=== PATIENT | female | born 1980 | race Native Hawaiian/Other Pacific Islander ===

== ENCOUNTER 2016-05-14 21:30 | Observation (INO) | payer OTHER ==
[~2016-05-14] VITALS: Ht 177.8 cm; Wt 86.2 kg
[2016-05-14] MEDS ORDERED: TERBUTALINE 1 MG/ML VIAL SUBQ SCH (22:40)
[2016-05-14] MEDS ORDERED: BETAMETH ACET/BETAMETH NA PH 30 MG/5 ML VIAL IM ONE ×2 (22:40→23:06)
[2016-05-14] MEDS ORDERED: LABE200T9 PO (23:00)
[2016-05-14] MEDS ORDERED: PREN-380 PO (23:00)
[2016-05-14] MEDS ORDERED: GLYB2.5T9 PO (23:00)
[2016-05-14] MEDS ORDERED: TERBUTALINE 1 MG/ML VIAL SUBQ ONE (23:07)
[2016-05-14] MEDS: LACTATED RINGERS 1,000 ML IV SCH (23:27)
[2016-05-14 23:34] VITALS: BP 124/78
[2016-05-14] MEDS ORDERED: INFLUENZA VIRUS VACCINE QUAD 0.5 ML SYR IMVAC SCH (23:40)
[2016-05-15] MEDS ORDERED: TERBUTALINE 2.5 MG TAB PO SCH
[2016-05-15 00:05] LABS: BASOPHILS # (AUTO) 0.1 K/uL (0.00-0.22)
[2016-05-15 00:11] LABS: BASOPHILS % (AUTO) 0.9 % (0.0-2.0); EOSINOPHILS # (AUTO) 0.3 K/uL (0-0.4); EOSINOPHILS % (AUTO) 2.6 % (0.0-4.0); HEMATOCRIT 34.2 % (36-48); HEMOGLOBIN 10.7 g/dL (12.0-16.0); LYMPHOCYTES # (AUTO) 2.6 K/uL (2.5-16.5); LYMPHOCYTES % (AUTO) 23.1 % (20.5-51.1); MEAN CORPUSCULAR HEMOGLOBIN 24 pg (27-31); MEAN CORPUSCULAR HGB CONC 31 g/dL (33-37); MEAN CORPUSCULAR VOLUME 77 fL (80-94); MONOCYTES # (AUTO) 0.9 K/uL (0.8-1.0); MONOCYTES % (AUTO) 7.8 % (1.7-9.3); NEUTROPHILS # (AUTO) 7.4 K/uL (1.8-7.7); NEUTROPHILS % (AUTO) 65.6 % (42.2-75.2); PLATELET COUNT (AUTO) 149 K/uL (140-450); RED BLOOD CELL COUNT(AUTO) 4.45 MIL/uL (4.20-5.40); RED CELL DISTRIBUTION WIDTH 15.3 % (11.6-13.7)
[2016-05-15 00:12] LABS: APPEARANCE,URINE CLEAR (CLEAR); BILIRUBIN,URINE NEGATIVE (NEGATIVE); BLOOD, URINE NEGATIVE (NEGATIVE); COLOR,URINE YELLOW (YELLOW); LEUKOCYTE ESTERASE ,URINE NEGATIVE (NEGATIVE); NITRITE, URINE NEGATIVE (NEGATIVE); PROTEIN,URINE NEGATIVE (NEGATIVE); UGLUCOSE 3+ (NEGATIVE); UROBILINOGEN,URINE 0.2 EU/dL (0.2 - 1)
[2016-05-15 00:20] LABS: WHITE BLOOD COUNT (AUTO) 11.3 K/uL (4.8-10.8)
[2016-05-15 00:21] LABS: ALBUMIN 2.7 g/dL (3.4-5.0); ANION GAP 10.7 (8-16); CALCIUM 8.6 mg/dL (8.5-10.1); CARBON DIOXIDE 25.6 mmol/L (21-32); CREATININE 0.6 mg/dL (0.6-1.3); POTASSIUM 4.3 mmol/L (3.5-5.1); TOTAL BILIRUBIN 0.3 mg/dL (0.0-1.0); TOTAL PROTEIN, SERUM 6.3 g/dL (6.4-8.2)
[2016-05-15 00:27] LABS: BACTERIA,URINE 0-2 (RARE) /HPF (None Seen); RBC,URINE 0-5 (RARE) /HPF (0-5); SQUAMOUS EPITHELIAL CELL,UR 0-3 (FEW) /LPF (0-3 (FEW)); WBC,URINE 0-5 (RARE) /HPF (0-5)
[2016-05-15 00:34] LABS: INR 1.2 (0.8-1.2); PARTIAL THROMBOPLASTIN TIME 26.7 secs (22-35.6); PROTHROMBIN TIME 11.1 secs (10.8-13.4)
[2016-05-15] MEDS ORDERED: TERBUTALINE 2.5 MG TAB ONE ×5 (04:05→19:58)
[2016-05-15] MEDS: LACTATED RINGERS 1,000 ML IV SCH (05:51)
--- NOTE | 2016-05-15 07:13 | NUR ---
PATIENT HAS BEEN SCREENED AND CATEGORIZED MODERATE NUTRITION RISK. PATIENT WILL BE SEEN WITHIN 3-5 DAYS OF ADMISSION. 05/17/16-05/19/16 SYDNEE FRAIRE MS, RDN
[2016-05-15] MEDS ORDERED: LABETALOL 100 MG TAB PO SCH (09:00)
[2016-05-15] MEDS ORDERED: LABETALOL 100 MG TAB ONE (11:59)
[2016-05-15] MEDS ORDERED: BETAMETH ACET/BETAMETH NA PH 30 MG/5 ML VIAL IM ONE (20:39)
== END 2016-05-15 21:15 | disposition home or self-care (01) ==
LOC: MFCC 21:30
PROVIDERS: ADMIT Obstetrics & Gynecology; ATTEND Obstetrics & Gynecology
DX: O26.893 Other specified pregnancy related conditions, third trimester (principal); R10.30 Lower abdominal pain, unspecified; Z3A.32 32 weeks gestation of pregnancy
CPT/HCPCS: 36415; 76805; 80053; 81001; 82731; 82948; 85025; 85379; 85384; 85610; 85730; 96360; 96361; 96372; G0378; J0702; J3105; J7120; Q0092

== ENCOUNTER 2016-06-21 15:48 | Emergency (ER) | payer OTHER ==
[~2016-06-21] VITALS: Ht 177.8 cm; Wt 92.2 kg
[~2016-06-21 15:48] MED LIST: GLYBURIDE2.5 MG PO; LABETALOL HCL200 M1 PO; PRENATAL LOW IR1 TA1 PO
[2016-06-21 15:52] VITALS: BP 137/79
--- NOTE | 2016-06-21 16:20 | NUR ---
PT CAME IN WITH CHEST PAIN 7/10 CONSTANT RADIATING TO LEFT ARM WITH SHORTNESS OF BREATH STARTED 1 PM ,O2 SAT OF 99%.PT IS 40 WEEKS .NO VAGINAL BLEEDING.WITH ON AND OFF CRAMPING.WITH NAUSEA ,NO VOMITING NO FEVER ,NO DIARRHEA.PT FELT MOVEMENT.PT WITH DM AND HTN;AAOX4;NO ACUTE DISTRESS NOTED AT THIS TIME;HOB ELEVATED;NEEDS ATTENDED;SAFETY MEASURES DONE;POSITIONED FOR COMFORT.
[2016-06-21] MEDS ORDERED: ACETAMINOPHEN EXTRA STRENGTH 500 MG TAB PO ONE (16:50)
[2016-06-21] MEDS ORDERED: ONDANSETRON 4 MG ODT PO ONE (16:50)
--- NOTE | 2016-06-21 17:31 | NUR ---
PT LYING ON BED;NO ACUTE DISTRESS NOTED AT THIS TIME;PT STATES SHE DON'T HAVE CHEST PAIN AT THIS TIME PAIN SCALE OF 0/10;WILL CONTINUE TO MONITOR PT.
--- NOTE | 2016-06-21 18:17 | NUR ---
US AT BEDSIDE.
--- NOTE | 2016-06-21 19:50 | NUR ---
ASSUMED CARE. RECEIVED ALERT, ORIENTED. NOT IN ACUTE DISTRESS. DENIES ANY PAIN OR DISCOMFORT AT THIS TIME. PT. IS FOR PLANNED TRANSFER TO [facility]. VS STABLE, WILL CONTINUE TO MONITOR.
--- NOTE | 2016-06-21 21:25 | NUR ---
PT.ACCEPTED AT [facility]. ACCEPTING MD IS DR. DOMINGUEZ. OB-HEALTH SERVICES DIRECTOR IS . BELLA GIVEN TO PARTITION NOTCHERBRITTNEY LEBLANC. PT. REMAINS STABLE AND PAIN FREE.
--- NOTE | 2016-06-21 21:30 | NUR ---
PT.LEFT VIA [place] [facility].
[2016-06-21 21:40] VITALS: BP 142/99
== END 2016-06-21 21:30 | disposition short-term general hospital (02) ==
LOC: MED 15:48
DX: O26.892 Other specified pregnancy related conditions, second trimester (principal); R07.89 Other chest pain; Z3A.38 38 weeks gestation of pregnancy
CPT/HCPCS: 36415; 80053; 82948; 83880; 84484; 85025; 85379; 85610; 85730; 93005; 93970; 99291; 99292; Q0092; S0119

== ENCOUNTER 2016-06-25 07:15 | Inpatient (IN) | payer OTHER ==
[~2016-06-25] VITALS: Ht 177.8 cm; Wt 92.5 kg
[2016-06-25] MEDS ORDERED: LACTATED RINGERS 1,000 ML IV SCH (08:04)
[2016-06-25] MEDS ORDERED: CITRIC ACID/SODIUM CITRATE 30 ML UDC PO SCH (08:05)
[2016-06-25] MEDS ORDERED: OXYTOCIN 20 UNITS/LR PREMIX 1,000 ML IV SCH (08:15)
[2016-06-25] MEDS ORDERED: LABETALOL HCL100 MG PO (08:53)
[2016-06-25] MEDS ORDERED: PRENATAL LOW IR1 TA1 PO (08:53)
[2016-06-25] MEDS ORDERED: GLYBURIDE2.5 MG PO (08:53)
[2016-06-25 10:20] VITALS: BP 141/96
[2016-06-25] MEDS ORDERED: ceFAZolin 1,000 MG VIAL ONE (10:30)
[2016-06-25] MEDS ORDERED: ePHEDrine 50 MG/ML VIAL ONE (10:45)
[2016-06-25] MEDS ORDERED: OXYTOCIN 10 UNITS/ML VIAL ONE (10:45)
[2016-06-25] MEDS ORDERED: BUPIVACAINE-MPF 0.75% 10 ML VIAL INJ ONE (10:45)
[2016-06-25] MEDS ORDERED: ONDANSETRON 4 MG/2 ML VIAL ONE (10:45)
[2016-06-25] MEDS ORDERED: fentaNYL 0.05 MG/ML VIAL ONE (11:05)
[2016-06-25] MEDS ORDERED: MIDAZOLAM 2 MG/2 ML VIAL ONE (11:06)
[2016-06-25] MEDS ORDERED: KETAMINE 500 MG/5 ML VIAL ONE (11:06)
[2016-06-25] MEDS ORDERED: MORPHINE PRES FREE 10 MG/10 ML AMP IV ONE (11:06)
[2016-06-25] MEDS ORDERED: diphenhydrAMINE 50 MG/ML VIAL IVP PRN (11:45)
[2016-06-25] MEDS ORDERED: ONDANSETRON 4 MG/2 ML VIAL IVP PRN (11:45)
[2016-06-25] MEDS ORDERED: KETOROLAC 30 MG/ML VIAL IVP PRN ×2 (11:45→14:05)
[2016-06-25] MEDS ORDERED: SODIUM PHOSPHATE 118 ML ENEM RC PRN (14:05)
[2016-06-25] MEDS ORDERED: BISACODYL 5 MG TABEC PO PRN (14:05)
[2016-06-25] MEDS ORDERED: MEASLES, MUMPS, AND RUBELLA 1 VIAL SQVAC PRN (14:05)
[2016-06-25] MEDS ORDERED: DOCUSATE SODIUM 100 MG GELCAP PO PRN (14:05)
[2016-06-25] MEDS ORDERED: HYDROmorphone 1 MG/ML AMP IVP PRN (14:05)
[2016-06-25] MEDS ORDERED: diphenhydrAMINE 50 MG/ML VIAL ONE (15:51)
[2016-06-25] MEDS: OXYTOCIN 20 UNITS/LR PREMIX 1,000 ML IV SCH (22:26)
[2016-06-26] MEDS: OXYTOCIN 20 UNITS/LR PREMIX 1,000 ML IV SCH (06:31)
[2016-06-26] MEDS: SIMETHICONE 80 MG TAB.CHEW PO PRN (17:14)
[2016-06-27] MEDS: IBUPROFEN 600 MG TAB PO PRN ×3 (02:12→22:50)
[2016-06-27] MEDS ORDERED: oxyCODONE/APAP 5/325 MG 1 TAB TAB PO PRN (08:05)
--- NOTE | 2016-06-28 08:30 | NUR ---
PATIENT HAS BEEN SCREENED AND CATEGORIZED LOW NUTRITION RISK. PATIENT WILL BE SEEN WITHIN 7 DAYS OF ADMISSION. 07/01/[address]
[2016-06-28] MEDS: IBUPROFEN 600 MG TAB PO PRN (15:17)
[2016-06-28] MEDS: SIMETHICONE 80 MG TAB.CHEW PO PRN (15:17)
[2016-06-29] MEDS: IBUPROFEN 600 MG TAB PO PRN ×2 (02:24→20:28)
== END 2016-06-29 21:48 | disposition home or self-care (01) | DRG 540 ==
LOC: MLD 07:15 → UNDOADMIN 07:21 → MLD 07:21 → MFCC 11:28
PROVIDERS: ADMIT Obstetrics & Gynecology; ATTEND Obstetrics & Gynecology
PROC: 0UB70ZZ Excision of Bilateral Fallopian Tubes, Open Approach (ICD-10-PCS; 2016-06-25)
PROC: 10D00Z1 Extraction of Products of Conception, Low, Open Approach (ICD-10-PCS; principal; 2016-06-25 11:00)
PROC: 3E0234Z Introduction of Serum, Toxoid and Vaccine into Muscle, Percutaneous Approach (ICD-10-PCS; 2016-06-26)
DX: O24.32 Unspecified pre-existing diabetes mellitus in childbirth (principal); O13.4 Gestational [pregnancy-induced] hypertension without significant proteinuria, complicating childbirth; E11.9 Type 2 diabetes mellitus without complications; O36.63X0 Maternal care for excessive fetal growth, third trimester, not applicable or unspecified; O34.211 Maternal care for low transverse scar from previous cesarean delivery; Z3A.38 38 weeks gestation of pregnancy; Z37.0 Single live birth; Z98.82 Breast implant status; Z90.49 Acquired absence of other specified parts of digestive tract; Z23 Encounter for immunization